=== PATIENT | male | born 1960 | race Caucasian/White ===

== ENCOUNTER 2024-03-15 00:56 | Emergency (ER) | payer BC, SELFPAY ==
[2024-03-15 01:07] VITALS: BP 148/85
--- NOTE | 2024-03-15 01:50 | ED.GENMED ---
History of Present Illness
General
Chief Complaint: Male Genito-Urinary Symptoms
Source: patient
Exam Limitations: none
Time Seen by Provider: 03/15/24 01:35
History of Present Illness
History of Present Illness:
63-year-old male with history of kidney stones presents with urinary symptoms this evening. He states he woke up having the urge to urinate however was unable to. He tried a couple times at home but could not go and came here. Since then has been
drinking water and cranberry juice and has urinated. He feels as though at this point he is emptying his bladder. He denies flank pain nausea vomiting. This does not feel typical of his kidney stones. No other complaints
Past History
Past History
ED Past Medical History: Renal failure (Has seen nephrology previously)
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
Social History
Tobacco: Non-smoker
Alcohol: None
Drug: None
Personal:
Living: with family
Employment: Employed
Family History
Family History: Other (Noncontributory)
Phy Exam
Physical Exam
Physical Exam:
General: Well-appearing male no acute respiratory distress
HEENT: Normocephalic atraumatic
Heart: Regular rate and rhythm no murmurs
Lungs: Clear no wheeze
Abdomen: Soft nontender nondistended no guarding or rebound no costovertebral angle tenderness
Course
Orders/Labs/Results
Orders:
Orders
03/15/24 02:00
Complete Blood Count/With Diff Urgent
Urinalysis Reflex To Culture Urgent
Date Specimen was Collected: 03/15/24
Time Specimen was Collected: 01:58
03/15/24 02:23
Comprehensive Metabolic Panel Urgent
Abnormal Lab Results
03/15/24 03/15/24
02:00 02:23
WBC 11.5 H 10^3/uL
(4.8-10.8)
Absolute Neuts (auto) 8.7 H 10^3/uL
(1.4-6.5)
Absolute Monos (auto) 0.9 H 10^3/uL
(0.1-0.6)
Neutrophils % 76.1 H %
(42.2-75.2)
Lymphocytes % 13.9 L %
(20.5-51.1)
BUN 26 H mg/dl
(9-20)
Creatinine 1.5 H mg/dL
(0.7-1.3)
Glucose 136 H mg/dl
(70-99)
03/15/24 02:00
03/15/24 02:23
Vital Signs
Initial and Last Documented VS:
Initial Vital Signs
Temp Pulse Resp BP Pulse Ox
99.2 F 73 20 148/85 99
03/15/24 01:07 03/15/24 01:07 03/15/24 01:07 03/15/24 01:07 03/15/24 01:07
Last Documented Vital Signs
Temp Pulse Resp BP Pulse Ox
99.2 F 73 20 140/84 93
03/15/24 01:07 03/15/24 01:07 03/15/24 01:07 03/15/24 02:21 03/15/24 02:23
MDM/Problems Addressed
Differential Diagnosis Includes:
Dysuria now seemingly resolved. Question possible intermittent urinary retention, BPH versus UTI. Patient has no pain. Exam not consistent with kidney stone. Urinalysis pending labs pending
*Critical Care Note
Total Time (30-74mins, 75-104mins- exclusive of procedures): Not Applicable
Update Note
Update Note:
Workup here essentially negative. Urinalysis normal chemistries without significant finding. Creatinine is 1.5 but this is lower than baseline. Patient did have a bladder scan after he voided. There was less than 200 mL in his bladder after he
voided. He is asymptomatic upon reassessment. This point no indication for any further intervention. Recommend follow-up with family doctor or urology
ED Attending Note
-
Portions of this chart may have been created with voice recognition software.� Occasional wrong word or��sound alike� substitutions may have occurred due to the inherent limitations of voice recognition software.
Discharge Plan
Departure
Patient Disposition: Home (Routine Discharge)
Date of Disposition: 03/15/24
Time of Disposition: 03:00
Patient with high blood pressure during this ER visit?: No
Discharge Problem:
urinary difficulty
Instructions: Urinary Retention (DC)
Prescriptions:
No Action
tamsulosin [Flomax] 0.4 mg capsule
0.4 mg PO DAILY Qty: 7 0RF
diclofenac sodium 75 mg tablet,delayed release (DR/EC)
75 mg PO BID Qty: 10 0RF
clopidogrel 75 mg tablet
75 mg PO DAILY
chlorthalidone 25 mg tablet
25 mg PO DAILY
omeprazole 40 mg capsule,delayed release(DR/EC)
40 mg PO DAILY
telmisartan 80 mg tablet
80 mg PO DAILY
allopurinol 300 mg tablet
300 mg PO DAILY
rosuvastatin 20 mg tablet
40 mg PO DAILY
nebivolol 5 mg tablet
5 mg PO HS
oxycodone-acetaminophen [Percocet] 5-325 mg tablet
1 tab PO Q8H PRN (Reason: moderate pain)
Patient Comments:
07/21/2022: last filled 07/20/22, 10 tabs for 2 days from [id number]
aspirin 81 mg Tablet,Delayed Release (Dr/Ec)
81 mg PO DAILY Qty: 30 0RF
oseltamivir 30 mg Capsule
30 mg PO BID 3 Days Qty: 6 0RF
Rx Instructions:
first dose 07/24/22
Referrals:
Cesar Schumacher DO [Family Provider] -
Activity Restrictions/Additional Instructions:
Please return here for worsening symptoms otherwise follow-up with your urologist
Interventions
Interventions:
*Risk Screen - Suicide Last Done: 03/15/24 01:07
*General Assessment Last Done: 03/15/24 01:07
*Neglect/Abuse Screening Last Done: 03/15/24 01:07
ED- Fall Risk Assessment Last Done: 03/15/24 01:07
*ED COVID-19 Vaccine History Last Done: 03/15/24 01:07
ED-Male Genitourinary Assessment Last Done: 03/15/24 02:29
Discharge Date and Time
Print Language: ITALIAN
[2024-03-15 02:15] LABS: Urine Albumin Negative (Neg - Trace); Urine Bilirubin Negative (Negative); Urine Character Clear (Clear); Urine Color Yellow; Urine Glucose Negative (Negative); Urine Ketone Negative (Negative); Urine Leukocyte Negative (Negative); Urine Nitrite Negative (Negative); Urine Occult Blood Negative (Negative); Urine Specific Gravity 1.005 (<1.030); Urine Urobilinogen Negative (Neg - 1+); Urine pH 6.5 (5.0-9.0)
[2024-03-15 02:16] LABS: % Basophils 0.4 % (0-2); % Eosinophils 1.6 % (0-6); % Immature Granulocytes 0.3 % (0-0.5); % Lymphocytes 13.9 % (20.5-51.1); % Monocytes 7.7 % (1.7-9.3); % Neutrophils 76.1 % (42.2-75.2); Absolute Basophils 0.1 10^3/uL (0-0.2); Absolute Eosinophils 0.2 10^3/uL (0-0.7); Absolute Lymphocytes 1.6 10^3/uL (1.2-3.4); Absolute Monocytes 0.9 10^3/uL (0.1-0.6); Absolute Neutrophils 8.7 10^3/uL (1.4-6.5); Hemoglobin 14.5 g/dL (13.0-18.0); Mean Corp Hgb Conc. 36.3 g/dL (33.0-37.0); Mean Corpuscular Hgb 29.4 pg (27.0-31.0); Mean Corpuscular Volume 81.1 fL (80.0-94.0); Mean Platelet Volume 9.5 fL (7.4-10.4); Nucleated Red Blood Cells % 0 % (-); Platelet Count 171 10^3/uL (130-400); Red Blood Cell Count 4.93 10^6/uL (4.70-6.10); Red Cell Dist. Width 13.2 % (11.5-14.5); White Blood Cell Count 11.5 10^3/uL (4.8-10.8)
[2024-03-15 02:21] VITALS: BP 140/84
[2024-03-15 02:22] VITALS: BMI 31.1
[2024-03-15 02:55] LABS: ALT (SGPT) 30 U/L (0-50); AST (SGOT) 32 U/L (17-59); Albumin 4.3 g/dl (3.5-5.0); Alkaline Phosphatase 94 U/L (38-126); Blood Urea Nitrogen 26 mg/dl (9-20); Calcium 9.1 mg/dl (8.4-10.2); Carbon Dioxide 29 mmol/L (22-30); Chloride 103 mmol/L (98-107); Estimated Creatinine Clearance 62 ml/min; Glucose 136 mg/dl (70-99); Potassium 3.6 mmol/L (3.5-5.1); Sodium 139 mmol/L (135-145); Total Bilirubin 0.6 mg/dl (0.2-1.3); Total Protein 7.1 g/dl (6.3-8.2); eGFR 52.31
== END 2024-03-15 03:06 | disposition home or self-care (01) ==
LOC: EMR 00:56
PROVIDERS: Physician Assistant; EMERGENCY PHYSICIAN Emergency Medicine; FAMILY PHYSICIAN Family Medicine
DX: R39.198 Other difficulties with micturition (principal)
CPT/HCPCS: 99283; 51798; 80053; 81003; 85025

== ENCOUNTER 2025-06-27 20:59 | Emergency (ER) | payer BC, SELFPAY ==
[2025-06-27 21:18] VITALS: BP 157/77
[2025-06-27 21:39] LABS: Hematocrit 41.3 % (39.0-52.0); Hemoglobin 13.9 g/dL (13.0-18.0); Mean Corp Hgb Conc. 33.7 g/dL (33.0-37.0); Mean Corpuscular Volume 82.3 fL (80.0-94.0); Nucleated Red Blood Cells % 0 % (-); Platelet Count 180 10^3/uL (130-400); Red Cell Dist. Width 13.8 % (11.5-14.5)
[2025-06-27 22:02] LABS: ALT (SGPT) 34 U/L (0-50); AST (SGOT) 24 U/L (17-59); Albumin 4.2 g/dl (3.5-5.0); Alkaline Phosphatase 109 U/L (38-126); Blood Urea Nitrogen 24 mg/dl (9-20); Calcium 8.7 mg/dl (8.4-10.2); Carbon Dioxide 29 mmol/L (22-30); Chloride 102 mmol/L (98-107); Glucose 124 mg/dl (70-99); Potassium 3.0 mmol/L (3.5-5.1); Sodium 138 mmol/L (135-145); Total Protein 7.3 g/dl (6.3-8.2); eGFR > 60.00
--- NOTE | 2025-06-27 23:53 | ED.GENMED ---
History of Present Illness
General
Chief Complaint: Cough
Source: patient
Exam Limitations: none
Time Seen by Provider: 06/27/25 23:38
Nursing documentation reviewed up to this point in time: agreed with
History of Present Illness
History of Present Illness:
64-year-old male presents to the ER for evaluation. Patient has a history of cardiac stents and is on Plavix, hypertension hyperlipidemia [place]. He has had a cough for the past 2 weeks and today as well as family doctor was placed on antibiotics
inhaler and cough medicine. He is starting to feel better from the cough medication and inhaler however he does report he coughed up 2 episodes of blood today. 1 episode was about a quarter size of blood and the second was about a dime size of
bright red blood. He denies any associated shortness of breath and has not coughed up blood since. He denies any fevers. His COVID and flu were negative at home
Past History
Past History
ED Past Medical History: Renal failure (Has seen nephrology previously)
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
Social History
Tobacco: Non-smoker
Alcohol: None
Drug: None
Personal:
Living: with family
Employment: Employed
Family History
Family History: Other (Noncontributory)
Phy Exam
General Physical Exam
General Presentation: no apparent distress
General age: appears stated age
General Skin: warm and dry
General Habitus: normal
General Mental: alert
General Hydration: appears well hydrated
Cardiovascular Exam
Cardiovascular Exam: regular rate/rhythm, no murmur and normal peripheral pulses
Pulmonary Exam
Pulmonary Exam: lungs clear and no respiratory distress
Neurological Exam
Neurological Exam: alert and oriented x3
Musculoskeletal Exam
Musculoskeletal Exam: full ROM
Skin Exam
Skin Exam: normal color and warm/dry
Psychiatric Exam
Psychiatric Exam: normal mood/affect
Course
Orders/Labs/Results
Orders:
Orders
06/27/25 21:24
Chest [CR Chest - 2 Views ] Urgent
Comment:
Reason For Exam: cough
06/27/25 21:32
Complete Blood Count/With Diff Urgent
Comprehensive Metabolic Panel Urgent
06/28/25 00:00
Potassium Chloride [KCl] 40 meq PO NOW STA
06/28/25 00:28
Electrocardiogram (*1) Stat
Reason for Study: Other
Other Reason for Exam: chest pain
EKG- Treatment ONCE
Abnormal Lab Results
06/27/25
21:32
WBC 12.6 H 10^3/uL
(4.8-10.8)
Abs Immat Gran (auto) 0.1 H 10^3/uL
(0-0.05)
Absolute Neuts (auto) 7.1 H 10^3/uL
(1.4-6.5)
Absolute Lymphs (auto) 3.8 H 10^3/uL
(1.2-3.4)
Absolute Monos (auto) 1.2 H 10^3/uL
(0.1-0.6)
Monocytes % 9.4 H %
(1.7-9.3)
Potassium 3.0 L mmol/L
(3.5-5.1)
BUN 24 H mg/dl
(9-20)
Glucose 124 H mg/dl
(70-99)
06/27/25 21:32
06/27/25 21:32
Vital Signs
Initial and Last Documented VS:
Initial Vital Signs
Temp Pulse Resp BP Pulse Ox
97.8 F 76 20 157/77 99
06/27/25 21:18 06/27/25 21:18 06/27/25 21:18 06/27/25 21:18 06/27/25 21:18
Last Documented Vital Signs
Temp Pulse Resp BP Pulse Ox
97.8 F 76 20 157/77 99
06/27/25 21:18 06/27/25 21:18 06/27/25 21:18 06/27/25 21:18 06/27/25 23:54
Gas Flow Regulator consulted with Physician
Gas Flow Regulator consulted with physician?: Yes
Name of Physician Consulted: Murtaza
MDM/Problems Addressed
MDM/Problems Addressed:
As documented patient is a 64-year-old male who has had cough for the past 2 weeks. He is on Plavix for history of stents. He had outpatient testing which was negative for COVID flu. Today saw his family doctor who prescribed him cough
suppressant antibiotic and inhaler. He presented because he had 2 episodes of coughing up blood one quarter size and a second episode of dime size. No further hemoptysis since. He is very well. He has no complaints of shortness of breath
symptoms are not consistent with PE white count very minimally elevated no lower extremity swelling. case d/c with ED physician. Hemoptysis likely cause from persistent cough for the past 2 weeks however stable for discharge home.
His potassium was mildly low I did order a dose of KDUR will have him get this re-checked as an outpt.
discussed to return if any worsening of symptoms and close outpatient follow-up
*Radiology
Radiology exam reviewed: radiology read reviewed
*Pulse Oximetry
SaO2: 99
Oxygen Mode of Delivery: Room air
Patient hypoxic: no
*EKG
Interpreted by ED Provider?: Yes
Interpretation: normal
Comparison EKG: no changes
Heart Rate: 65
Rate: normal
Rhythm: sinus
*Critical Care Note
Total Time (30-74mins, 75-104mins- exclusive of procedures): Not Applicable
ED Attending Note
-
Portions of this chart may have been created with voice recognition software.� Occasional wrong word or��sound alike� substitutions may have occurred due to the inherent limitations of voice recognition software.
Discharge Plan
Departure
Patient Disposition: Home (Routine Discharge)
Date of Disposition: 06/28/25
Time of Disposition: 00:22
Patient with high blood pressure during this ER visit?: Yes
Condition: Fair
Covid-19: Not Applicable
Discharge Problem:
Cough, Hemoptysis, Acute hypokalemia
Instructions: Hypokalemia, Cough, Adult (DC), Coughing up blood, BLOOD PRESSURE
Prescriptions:
No Action
tamsulosin [Flomax] 0.4 mg capsule
0.4 mg PO DAILY Qty: 7 0RF
diclofenac sodium 75 mg tablet,delayed release (DR/EC)
75 mg PO BID Qty: 10 0RF
clopidogrel 75 mg tablet
75 mg PO DAILY
chlorthalidone 25 mg tablet
25 mg PO DAILY
omeprazole 40 mg capsule,delayed release(DR/EC)
40 mg PO DAILY
telmisartan 80 mg tablet
80 mg PO DAILY
allopurinol 300 mg tablet
300 mg PO DAILY
rosuvastatin 20 mg tablet
40 mg PO DAILY
nebivolol 5 mg tablet
5 mg PO HS
oxycodone-acetaminophen [Percocet] 5-325 mg tablet
1 tab PO Q8H PRN (Reason: moderate pain)
Patient Comments:
07/21/2022: last filled 07/20/22, 10 tabs for 2 days from [id number]
aspirin 81 mg Tablet,Delayed Release (Dr/Ec)
81 mg PO DAILY Qty: 30 0RF
oseltamivir 30 mg Capsule
30 mg PO BID 3 Days Qty: 6 0RF
Rx Instructions:
first dose 07/24/22
Referrals:
Cesar Schumacher DO [Family Provider, Family Practice]
Activity Restrictions/Additional Instructions:
As discussed your symptoms are likely from the excessive cough which caused you to cough up some blood. Your hemoglobin the labs are stable return however if any worsening of symptoms including increasing coughing up blood or shortness of breath.
In addition your potassium is mildly low you were given a dose of oral potassium here in the ER. Please have your potassium rechecked by your family doctor next week.
Interventions
Interventions:
*Risk Screen - Suicide Last Done: 06/27/25 21:18
*General Assessment Last Done: 06/27/25 21:18
*Neglect/Abuse Screening Last Done: 06/27/25 21:18
*ED- Fall Risk Assessment Last Done: 06/27/25 21:18
*ED COVID-19 Vaccine History Last Done: 06/27/25 21:18
*ED Influenza Vaccine History Last Done: 06/27/25 21:18
Discharge Date and Time
Print Language: YAKUT
[2025-06-28] MEDS: KCL 40 MEQ PO (00:19)
== END 2025-06-28 01:06 | disposition home or self-care (01) ==
LOC: EMR 20:59
PROVIDERS: Emergency Medicine; EMERGENCY PHYSICIAN Student in an Organized Health Care Education/Training Program; FAMILY PHYSICIAN Family Medicine
DX: R05.9 Cough, unspecified (principal); R04.2 Hemoptysis; E87.6 Hypokalemia; I10 Essential (primary) hypertension; E78.00 Pure hypercholesterolemia, unspecified; Z79.02 Long term (current) use of antithrombotics/antiplatelets; Z95.5 Presence of coronary angioplasty implant and graft
CPT/HCPCS: 99283; 71046; 80053; 85025; 93005